=== PATIENT | female | born 1945 | race Caucasian/White ===

== ENCOUNTER 2019-12-15 20:55 | Emergency (ER) | payer OTHER, SELFPAY ==
[2019-12-15 21:07] VITALS: BP 149/69; PULSE 72; RESP 16; TEMP 37.6; O2SAT 98; BMI 23.1
[2019-12-15 22:00] VITALS: BP 153/64; PULSE 78; RESP 16; O2SAT 99
--- NOTE | 2019-12-15 22:09 | XR_ITS ---
EXAMINATION: XR HIP, RIGHT CLINICAL INFORMATION: Fall COMPARISON: None TECHNIQUE: Two views of the right hip. Frontal view of the pelvis. FINDINGS: No fracture or dislocation. The femoral heads are well-seated within their acetabula. Bilateral joint space narrowing of the hips with subchondral sclerosis. Mild degenerative change of the pubic symphysis. The sacroiliac joints are well aligned. The pelvic rim is intact. The bowel gas pattern is unremarkable. XR/XR hip RT w [id number] IMPRESSION: No fracture or malalignment. Mild degenerative changes of the hips.
--- NOTE | 2019-12-15 22:09 | CT_ITS ---
EXAMINATION: NONCONTRAST HEAD CT NONCONTRAST CERVICAL SPINE CT INDICATION INFORMATION: Fall COMPARISON: None TECHNIQUE: Separate noncontrast CT examinations of the head and cervical spine were performed. Coronal and sagittal images were created for each examination at the technologist workstation. This CT examination was performed using dose optimization techniques as appropriate, variously including the following: *Automated exposure control *Adjustment of mA and/or kV according to patient size (this includes techniques or standardized protocols for targeted exams where dose is matched to indication/reason for exam; i.e. extremities or head) *Use of iterative reconstruction technique DLP: 899 mGy-cm FINDINGS: Head: There is no evidence of acute intracranial hemorrhage or territorial infarction. No abnormal mass effect or midline shift is seen. [place] Toro to white matter differentiation is well preserved. No extra-axial fluid collections are identified. No hydrocephalus. Proportional prominence of the ventricles and sulcal spaces is consistent with moderate volume loss. Patchy periventricular and deep white matter hypoattenuation is consistent with moderate small vessel ischemic changes. No acute osseous or soft tissue abnormality. The mastoid air cells and visualized portions of the paranasal sinuses are well aerated. Cervical spine: There is anatomic alignment of the vertebral bodies and posterior elements. The atlantoaxial and atlantooccipital articulations are intact. Vertebral body heights are maintained. There is multilevel intervertebral disc space narrowing with endplate osteophyte formation and facet arthropathy. No evidence of acute fracture. No prevertebral soft tissue swelling. Pleural thickening at the lung apices with mild centrilobular emphysema.. The thyroid gland is unremarkable. CT/CT cervical spine wo con IMPRESSION: 1. No acute intracranial finding. Volume loss with small vessel ischemic change. 2. No acute fracture or malalignment of the cervical spine. Moderate degenerative changes.
--- NOTE | 2019-12-15 22:18 | PC.NURSE ---
called [facility] at [phone] and no one picks up the phone to verify allergies and situation
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
== END 2019-12-16 01:58 | disposition home or self-care (01) ==
PROVIDERS: Emergency Provider Internal Medicine
DX: S39.92XA Unspecified injury of lower back, initial encounter (principal); M54.2 Cervicalgia; F03.90 Unspecified dementia, unspecified severity, without behavioral disturbance, psychotic disturbance, mood disturbance, and anxiety; W01.0XXA Fall on same level from slipping, tripping and stumbling without subsequent striking against object, initial encounter; Y93.01 Activity, walking, marching and hiking; Y92.129 Unspecified place in nursing home as the place of occurrence of the external cause; Y99.9 Unspecified external cause status; R10.2 Pelvic and perineal pain
CPT/HCPCS: 70450; 72125; 73502; 99284